=== PATIENT | female | born 1970 ===

== ENCOUNTER 2023-02-17 06:43 | Emergency (ER) | payer OTHER ==
[~2023-02-17] VITALS: Ht 162.6 cm; Wt 59.1 kg
[2023-02-17 07:05] VITALS: TEMP 98.1
[2023-02-17 07:44] VITALS: BP 130/88; PULSE 88; RESP 18
[2023-02-17] MEDS ORDERED: SULF-261 PO (07:45)
[2023-02-17] MEDS ORDERED: CEPH-558 PO (07:45)
== END 2023-02-17 08:26 | disposition home or self-care (01) ==
LOC: EMS 06:45
DX: L02.412 Cutaneous abscess of left axilla (principal)
CPT/HCPCS: 99283; Z7502